=== PATIENT | male | born 1980 | race Two or more races ===

== ENCOUNTER 2020-10-05 15:57 | Outpatient (CLI) | payer MEDICARE, BC ==
[~2020-10-05 15:57] MED LIST: FURO40TA4 PO; LISI10TA27 PO; PER10325T PO; POTA10TA21 PO
[2020-10-07 12:47] LABS: HBSAG SCREEN Negative (Negative)
== END 2020-10-05 23:59 | disposition home or self-care (01) ==
LOC: RAD 15:57
PROVIDERS: ATTEND Nurse Practitioner Family
DX: N18.6 End stage renal disease (principal)
CPT/HCPCS: 36415; 86706; 87340

== ENCOUNTER 2022-06-27 07:55 | Day surgery (SDC) | payer BC, MEDICARE ==
[~2022-06-27] VITALS: Ht 175.3 cm; Wt 93.8 kg
[2022-06-27] MEDS ORDERED: normal saline 1000ml 1,000 ML IV PRN (08:15)
[2022-06-27 08:27] VITALS: BP 115/79
[2022-06-27] MEDS ORDERED: LIDOcaine 1% 30ml preserv. free vial SQ STA (08:28)
[2022-06-27] MEDS ORDERED: ATOR-2 PO (08:31)
[2022-06-27] MEDS ORDERED: HYDR-3972 PO (08:31)
[2022-06-27] MEDS ORDERED: SEVE800T28 PO (08:31)
[2022-06-27] MEDS ORDERED: albumin 25% 100mL bottle x 1 IV PRN (09:45)
[2022-06-27] MEDS ORDERED: pneumococcal 23-VAL P-sac vacc 25 mcg/0.5ml vial IMVAC ONE (09:50)
[2022-06-27 10:02] VITALS: BP 133/61
[2022-06-27 10:15] VITALS: BP 116/61
[2022-06-27 10:30] VITALS: BP 115/71
[2022-06-27 10:45] VITALS: BP 112/75
[2022-06-27 11:00] VITALS: BP 122/85
== END 2022-06-27 11:15 | disposition home or self-care (01) ==
LOC: SSTAY O 07:55
PROVIDERS: ATTEND Radiology Vascular & Interventional Radiology
DX: R18.8 Other ascites (principal); I12.0 Hypertensive chronic kidney disease with stage 5 chronic kidney disease or end stage renal disease; N18.6 End stage renal disease; G89.29 Other chronic pain; F11.20 Opioid dependence, uncomplicated; Z99.2 Dependence on renal dialysis; Z98.890 Other specified postprocedural states; Z79.899 Other long term (current) drug therapy; Z23 Encounter for immunization; Z82.49 Family history of ischemic heart disease and other diseases of the circulatory system; Z83.3 Family history of diabetes mellitus
CPT/HCPCS: 49083; 90471; 90732; P9047; A6258

== ENCOUNTER 2022-07-11 06:56 | Day surgery (SDC) | payer BC, MEDICARE ==
[~2022-07-11] VITALS: Ht 175.3 cm; Wt 95.1 kg
[~2022-07-11 06:56] MED LIST changes: +ATOR-2 PO; -FURO40TA4 PO; +HYDR-3972 PO; +LIDOcaine 1% 30ml preserv. free vial SQ ONE; -LISI10TA27 PO; -PER10325T PO; -POTA10TA21 PO; +SEVE800T28 PO
[2022-07-11] MEDS ORDERED: albumin 25% 100mL bottle x 1 IV PRN (07:15)
[2022-07-11 07:30] VITALS: BP 122/89
[2022-07-11 08:50] VITALS: BP 100/63
[2022-07-11 09:05] VITALS: BP 118/76
[2022-07-11 09:20] VITALS: BP 114/80
[2022-07-11 09:30] VITALS: BP 125/55
[2022-07-11 09:45] VITALS: BP 118/76
== END 2022-07-11 09:55 | disposition home or self-care (01) ==
LOC: SSTAY O 06:56
PROVIDERS: ATTEND Radiology Vascular & Interventional Radiology
DX: R18.8 Other ascites (principal); R14.0 Abdominal distension (gaseous); I12.0 Hypertensive chronic kidney disease with stage 5 chronic kidney disease or end stage renal disease; N18.6 End stage renal disease; F11.20 Opioid dependence, uncomplicated; G89.29 Other chronic pain; Z98.890 Other specified postprocedural states; Z79.899 Other long term (current) drug therapy; Z99.2 Dependence on renal dialysis
CPT/HCPCS: 49083; J3490; P9047; A6258; A6449

== ENCOUNTER 2022-07-25 07:06 | Day surgery (SDC) | payer BC, MEDICARE ==
[~2022-07-25] VITALS: Ht 172.7 cm; Wt 94.8 kg
[~2022-07-25 07:06] MED LIST changes: -LIDOcaine 1% 30ml preserv. free vial SQ ONE
[2022-07-25] MEDS ORDERED: LIDOcaine 1% 30ml preserv. free vial SQ STA (07:26)
[2022-07-25] MEDS ORDERED: albumin 25% 100mL bottle x 1 IV PRN (07:30)
[2022-07-25] MEDS ORDERED: normal saline 1000ml 1,000 ML IV PRN (07:30)
[2022-07-25 07:33] VITALS: BP 108/72
[2022-07-25 08:52] VITALS: BP 119/80
[2022-07-25 08:57] VITALS: BP 111/64
[2022-07-25 09:12] VITALS: BP 103/73
[2022-07-25 09:27] VITALS: BP 108/68
[2022-07-25 09:42] VITALS: BP 131/77
== END 2022-07-25 09:50 | disposition home or self-care (01) ==
LOC: SSTAY O 07:06
PROVIDERS: ATTEND Radiology Diagnostic Radiology
DX: R18.8 Other ascites (principal); R14.0 Abdominal distension (gaseous); I12.0 Hypertensive chronic kidney disease with stage 5 chronic kidney disease or end stage renal disease; N18.6 End stage renal disease; G89.29 Other chronic pain; Z99.2 Dependence on renal dialysis; Z79.899 Other long term (current) drug therapy
CPT/HCPCS: 49083; J3490; P9047; A6258; A6449

== ENCOUNTER 2022-08-08 07:03 | Day surgery (SDC) | payer BC, MEDICARE ==
[~2022-08-08] VITALS: Ht 175.3 cm; Wt 97.1 kg
[2022-08-08] MEDS ORDERED: LIDOcaine 1% 30ml preserv. free vial SQ STA (07:19)
[2022-08-08] MEDS ORDERED: albumin 25% 100mL bottle x 1 IV PRN (07:30)
[2022-08-08 08:14] VITALS: BP 103/74
[2022-08-08 08:19] VITALS: BP 123/68
[2022-08-08 08:34] VITALS: BP 110/72
[2022-08-08 09:05] VITALS: BP 104/75
[2022-08-08 09:19] VITALS: BP 92/58
[2022-08-08 09:30] VITALS: BP 118/87
== END 2022-08-08 09:45 | disposition home or self-care (01) ==
LOC: SSTAY O 07:03
PROVIDERS: ATTEND Radiology Vascular & Interventional Radiology
DX: R18.8 Other ascites (principal); R14.0 Abdominal distension (gaseous); I12.0 Hypertensive chronic kidney disease with stage 5 chronic kidney disease or end stage renal disease; N18.6 End stage renal disease; G89.29 Other chronic pain; Z98.890 Other specified postprocedural states; Z79.899 Other long term (current) drug therapy; Z82.49 Family history of ischemic heart disease and other diseases of the circulatory system; Z83.3 Family history of diabetes mellitus; Z80.0 Family history of malignant neoplasm of digestive organs
CPT/HCPCS: 49083; J3490; P9047; A6258

== ENCOUNTER 2022-08-22 08:25 | Day surgery (SDC) | payer BC, MEDICARE ==
[~2022-08-22] VITALS: Ht 175.3 cm; Wt 94.0 kg
[2022-08-22] MEDS ORDERED: LIDOcaine 1% 30ml preserv. free vial SQ STA (08:33)
[2022-08-22] MEDS ORDERED: albumin 25% 100mL bottle x 1 IV PRN (08:40)
[2022-08-22 08:45] VITALS: BP 104/72
[2022-08-22 09:43] VITALS: BP 112/77
[2022-08-22 09:58] VITALS: BP 106/73
[2022-08-22 10:13] VITALS: BP 91/60
[2022-08-22 10:28] VITALS: BP 106/69
[2022-08-22 10:43] VITALS: BP 100/84
== END 2022-08-22 10:48 | disposition home or self-care (01) ==
LOC: SSTAY O 08:25
PROVIDERS: ATTEND Radiology Vascular & Interventional Radiology
DX: R18.8 Other ascites (principal); R14.0 Abdominal distension (gaseous); I12.0 Hypertensive chronic kidney disease with stage 5 chronic kidney disease or end stage renal disease; N18.6 End stage renal disease; G89.29 Other chronic pain; N04.9 Nephrotic syndrome with unspecified morphologic changes; F11.20 Opioid dependence, uncomplicated; Z99.2 Dependence on renal dialysis; Z98.890 Other specified postprocedural states; Z79.899 Other long term (current) drug therapy
CPT/HCPCS: 49083; J3490; P9047; A6258; A6449

== ENCOUNTER 2022-09-05 06:59 | Day surgery (SDC) | payer BC, MEDICARE ==
[~2022-09-05] VITALS: Ht 172.7 cm; Wt 94.9 kg
[2022-09-05] MEDS ORDERED: LIDOcaine 1% 30ml preserv. free vial SQ STA (07:16)
[2022-09-05 07:20] VITALS: BP 107/74
[2022-09-05] MEDS ORDERED: albumin 25% 100mL bottle x 1 IV PRN (07:20)
[2022-09-05 08:45] VITALS: BP 95/66
[2022-09-05 09:00] VITALS: BP 103/70
[2022-09-05 09:15] VITALS: BP 90/56
[2022-09-05 09:30] VITALS: BP 101/64
[2022-09-05 09:45] VITALS: BP 103/67
== END 2022-09-05 10:00 | disposition home or self-care (01) ==
LOC: SSTAY O 06:59
PROVIDERS: ATTEND Radiology Vascular & Interventional Radiology
DX: R18.8 Other ascites (principal); R14.0 Abdominal distension (gaseous); I12.0 Hypertensive chronic kidney disease with stage 5 chronic kidney disease or end stage renal disease; N18.6 End stage renal disease; G89.29 Other chronic pain; F11.20 Opioid dependence, uncomplicated; Z98.890 Other specified postprocedural states; Z99.2 Dependence on renal dialysis; Z79.899 Other long term (current) drug therapy
CPT/HCPCS: 49083; J3490; P9047; A6258

== ENCOUNTER 2022-09-19 07:23 | Day surgery (SDC) | payer BC ==
[~2022-09-19] VITALS: Ht 175.3 cm; Wt 97.0 kg
[2022-09-19 07:38] VITALS: BP 97/71
[2022-09-19] MEDS ORDERED: LIDOcaine 1% 30ml preserv. free vial SQ STA (07:42)
[2022-09-19] MEDS ORDERED: albumin 25% 100mL bottle x 1 IV PRN (07:55)
[2022-09-19 08:58] VITALS: BP 145/55
[2022-09-19 09:03] VITALS: BP 105/63
[2022-09-19 09:15] VITALS: BP 105/68
[2022-09-19 09:30] VITALS: BP 108/67
[2022-09-19 09:45] VITALS: BP 111/67
== END 2022-09-19 10:00 | disposition home or self-care (01) ==
LOC: SSTAY O 07:23
PROVIDERS: ATTEND Radiology Vascular & Interventional Radiology
DX: R18.8 Other ascites (principal); I12.0 Hypertensive chronic kidney disease with stage 5 chronic kidney disease or end stage renal disease; N18.6 End stage renal disease; Z98.890 Other specified postprocedural states; Z79.899 Other long term (current) drug therapy
CPT/HCPCS: 49083; C1729; P9047; A6258; A6449

== ENCOUNTER 2022-09-29 06:52 | Day surgery (SDC) | payer BC ==
[2022-09-29] VITALS (7 sets, daily range): BP systolic 90–120; BP diastolic 45–70
[~2022-09-29] VITALS: Ht 175.3 cm; Wt 95.7 kg
[2022-09-29] MEDS ORDERED: albumin 25% 100mL bottle x 1 IV PRN (07:15)
[2022-09-29] MEDS ORDERED: LIDOcaine 1% 30ml preserv. free vial SQ STA (07:17)
[2022-09-29] MEDS ORDERED: normal saline 1000ml 1,000 ML IV PRN (07:20)
== END 2022-09-29 10:25 | disposition home or self-care (01) ==
LOC: SSTAY O 06:52
PROVIDERS: ATTEND Radiology Vascular & Interventional Radiology
DX: R18.8 Other ascites (principal); R14.0 Abdominal distension (gaseous); I12.0 Hypertensive chronic kidney disease with stage 5 chronic kidney disease or end stage renal disease; N18.6 End stage renal disease; G89.29 Other chronic pain; F11.20 Opioid dependence, uncomplicated; Z99.2 Dependence on renal dialysis; Z98.890 Other specified postprocedural states; Z79.899 Other long term (current) drug therapy
CPT/HCPCS: 49083; C1729; P9047; A6258; A6449

== ENCOUNTER 2022-10-10 06:48 | Day surgery (SDC) | payer BC ==
[~2022-10-10] VITALS: Ht 175.3 cm; Wt 96.0 kg
[2022-10-10] VITALS (8 sets, daily range): BP systolic 92–110; BP diastolic 55–76
[2022-10-10] MEDS ORDERED: albumin 25% 100mL bottle x 1 IV PRN (07:05)
[2022-10-10] MEDS ORDERED: LIDOcaine 1% (10mg/ml)w/preservative inj. 20ml MDV SQ STA (08:07)
== END 2022-10-10 10:00 | disposition home or self-care (01) ==
LOC: SSTAY O 06:48
PROVIDERS: ATTEND Radiology Vascular & Interventional Radiology
DX: R18.8 Other ascites (principal); R14.0 Abdominal distension (gaseous); I12.0 Hypertensive chronic kidney disease with stage 5 chronic kidney disease or end stage renal disease; N18.6 End stage renal disease; G89.29 Other chronic pain; F11.20 Opioid dependence, uncomplicated; Z98.890 Other specified postprocedural states; Z79.899 Other long term (current) drug therapy; Z83.3 Family history of diabetes mellitus; Z80.0 Family history of malignant neoplasm of digestive organs; Z82.49 Family history of ischemic heart disease and other diseases of the circulatory system
CPT/HCPCS: 49083; J3490; P9047; A6258; A6449; C1729

== ENCOUNTER 2022-10-17 05:57 | Day surgery (SDC) | payer BC ==
[~2022-10-17] VITALS: Ht 175.3 cm; Wt 95.7 kg
[2022-10-17 06:11] VITALS: BP 86/56
[2022-10-17] MEDS ORDERED: albumin 25% 100mL bottle x 1 IV PRN (06:25)
[2022-10-17] MEDS ORDERED: LIDOcaine 1%/PF 5ML 10 MG/ML VIAL SQ ONE (06:30)
[2022-10-17 08:10] VITALS: BP 95/64
[2022-10-17 08:30] VITALS: BP 101/73
[2022-10-17 08:45] VITALS: BP 94/61
[2022-10-17 09:00] VITALS: BP 95/69
[2022-10-17 09:10] VITALS: BP 101/57
== END 2022-10-17 09:30 | disposition home or self-care (01) ==
LOC: SSTAY O 05:57
PROVIDERS: ATTEND Radiology Vascular & Interventional Radiology
DX: R18.8 Other ascites (principal); R14.0 Abdominal distension (gaseous); I12.0 Hypertensive chronic kidney disease with stage 5 chronic kidney disease or end stage renal disease; N18.6 End stage renal disease; G89.29 Other chronic pain; Z99.2 Dependence on renal dialysis; Z98.890 Other specified postprocedural states; Z79.899 Other long term (current) drug therapy; F11.20 Opioid dependence, uncomplicated
CPT/HCPCS: 49083; J3490; P9047; A6258; A6449

== ENCOUNTER 2022-10-24 06:22 | Day surgery (SDC) | payer BC ==
[~2022-10-24] VITALS: Ht 175.3 cm; Wt 96.4 kg
[2022-10-24] MEDS ORDERED: albumin 25% 100mL bottle x 1 IV PRN (06:45)
[2022-10-24 07:00] VITALS: BP 99/63
[2022-10-24] MEDS ORDERED: LIDOcaine 1%/PF 5ML 10 MG/ML VIAL SQ ONE (07:00)
[2022-10-24 08:30] VITALS: BP 114/70
[2022-10-24 08:45] VITALS: BP 104/67
[2022-10-24 09:00] VITALS: BP 90/55
[2022-10-24 09:15] VITALS: BP 103/64
== END 2022-10-24 09:25 | disposition home or self-care (01) ==
LOC: SSTAY O 06:22
PROVIDERS: ATTEND Radiology Diagnostic Radiology
DX: R18.8 Other ascites (principal); R14.0 Abdominal distension (gaseous); I12.0 Hypertensive chronic kidney disease with stage 5 chronic kidney disease or end stage renal disease; N18.6 End stage renal disease; G89.29 Other chronic pain; F11.20 Opioid dependence, uncomplicated; Z99.2 Dependence on renal dialysis; Z98.890 Other specified postprocedural states; Z79.899 Other long term (current) drug therapy
CPT/HCPCS: 49083; J3490; P9047; A6258; A6449

== ENCOUNTER 2022-10-31 06:55 | Day surgery (SDC) | payer BC ==
[~2022-10-31] VITALS: Ht 172.7 cm; Wt 95.2 kg
[2022-10-31] MEDS ORDERED: albumin 25% 100mL bottle x 1 IV PRN (07:10)
[2022-10-31] MEDS ORDERED: LIDOcaine 1%/PF 5ML 10 MG/ML VIAL SQ ONE (07:10)
[2022-10-31 08:00] VITALS: BP 103/58
[2022-10-31 08:50] VITALS: BP 100/70
[2022-10-31 09:05] VITALS: BP 100/65
[2022-10-31 09:20] VITALS: BP 90/58
[2022-10-31 09:35] VITALS: BP 95/58
[2022-10-31 09:45] VITALS: BP 100/63
== END 2022-10-31 09:45 | disposition home or self-care (01) ==
LOC: SSTAY O 06:55
PROVIDERS: ATTEND Radiology Vascular & Interventional Radiology
DX: R18.8 Other ascites (principal); R14.0 Abdominal distension (gaseous); I12.0 Hypertensive chronic kidney disease with stage 5 chronic kidney disease or end stage renal disease; N18.6 End stage renal disease; G89.29 Other chronic pain; Z99.2 Dependence on renal dialysis; Z98.890 Other specified postprocedural states; F11.20 Opioid dependence, uncomplicated; Z79.899 Other long term (current) drug therapy; Z82.49 Family history of ischemic heart disease and other diseases of the circulatory system; Z80.0 Family history of malignant neoplasm of digestive organs; Z83.3 Family history of diabetes mellitus
CPT/HCPCS: 49083; J3490; P9047; A6258

== ENCOUNTER 2022-11-11 09:42 | Outpatient (CLI) | payer BC, MEDICARE | END 2022-11-11 23:59 | disposition home or self-care (01) | LOC: LAB 09:42 | PROVIDERS: ATTEND Nurse Practitioner Family | DX: R18.8 Other ascites (principal) | CPT/HCPCS: 36415; 82140; 85610 ==

== ENCOUNTER 2022-11-14 06:37 | Day surgery (SDC) | payer BC, MEDICARE ==
[~2022-11-14] VITALS: Ht 175.3 cm; Wt 97.9 kg
[2022-11-14] MEDS ORDERED: LIDOcaine 1%/PF 5ML 10 MG/ML VIAL SQ ONE (06:40)
[2022-11-14] MEDS ORDERED: normal saline 1000ml 1,000 ML IV PRN (06:55)
[2022-11-14] MEDS ORDERED: albumin 25% 100mL bottle x 1 IV PRN (06:55)
[2022-11-14 07:00] VITALS: BP 91/68
[2022-11-14 08:28] VITALS: BP 91/67
[2022-11-14 08:43] VITALS: BP 114/65
[2022-11-14 08:58] VITALS: BP 103/66
[2022-11-14 09:13] VITALS: BP 83/46
[2022-11-14 09:15] VITALS: BP 94/60
== END 2022-11-14 09:15 | disposition home or self-care (01) ==
LOC: SSTAY O 06:37
PROVIDERS: ATTEND Radiology Vascular & Interventional Radiology
DX: R18.8 Other ascites (principal); R14.0 Abdominal distension (gaseous); I12.0 Hypertensive chronic kidney disease with stage 5 chronic kidney disease or end stage renal disease; N18.6 End stage renal disease; G89.29 Other chronic pain; F11.20 Opioid dependence, uncomplicated; Z99.2 Dependence on renal dialysis; Z98.890 Other specified postprocedural states; Z79.899 Other long term (current) drug therapy; Z83.3 Family history of diabetes mellitus; Z82.49 Family history of ischemic heart disease and other diseases of the circulatory system; Z80.0 Family history of malignant neoplasm of digestive organs
CPT/HCPCS: 49083; J3490; P9047; A6258; A6449

== ENCOUNTER 2022-11-21 06:00 | Day surgery (SDC) | payer BC, MEDICARE ==
[~2022-11-21] VITALS: Ht 175.3 cm; Wt 97.4 kg
[2022-11-21] MEDS ORDERED: albumin 25% 100mL bottle x 1 IV PRN (06:15)
[2022-11-21] MEDS ORDERED: LIDOcaine 1%/PF 5ML 10 MG/ML VIAL SQ ONE (06:15)
[2022-11-21 08:04] VITALS: BP 103/69
[2022-11-21 08:12] VITALS: BP 103/69
[2022-11-21 08:34] VITALS: BP 116/70
[2022-11-21 08:52] VITALS: BP 108/77
== END 2022-11-21 09:10 | disposition home or self-care (01) ==
LOC: SSTAY O 06:00
PROVIDERS: ATTEND Radiology Diagnostic Radiology
DX: R18.8 Other ascites (principal); R14.0 Abdominal distension (gaseous); I12.0 Hypertensive chronic kidney disease with stage 5 chronic kidney disease or end stage renal disease; N18.6 End stage renal disease; Z99.2 Dependence on renal dialysis; G89.29 Other chronic pain; F11.20 Opioid dependence, uncomplicated; Z98.890 Other specified postprocedural states; Z79.899 Other long term (current) drug therapy
CPT/HCPCS: 49083; C1729; J3490; P9047; A6258

== ENCOUNTER 2022-12-26 06:44 | Day surgery (SDC) | payer BC ==
[2022-12-26] VITALS (8 sets, daily range): BP systolic 96–114; BP diastolic 56–78
[~2022-12-26] VITALS: Ht 175.3 cm; Wt 100.8 kg
[2022-12-26] MEDS ORDERED: LIDOcaine 1%/PF 5ML 10 MG/ML VIAL SQ ONE (07:35)
[2022-12-26] MEDS: albumin 25% 100mL bottle x 1 IV PRN ×2 (09:04→09:27)
[2022-12-26 10:49] LABS: GLUCOSE,BODY FLUID 107 MG/DL; LDH,BODY FLUID 116 U/L
[2022-12-26 11:29] LABS: BF RBC COUNT 3400 /CU MM; BF WBC COUNT 175 /CU MM (0-1000); BFAPPEAR CLOUDY; BFCOLOR YELLOW; BFVOLUME 58 ML; LYMPHOCYTES,BODY FLUID 30 %; MONOCYTES,BODY FLUID 62 %; NEUTROPHILS,BODY FLUID 8 %
[2022-12-26 11:30] LABS: BF MESOTHELIAL CELLS FEW
== END 2022-12-26 10:15 | disposition home or self-care (01) ==
LOC: SSTAY O 06:44
PROVIDERS: ATTEND Radiology Vascular & Interventional Radiology
DX: R18.8 Other ascites (principal); R14.0 Abdominal distension (gaseous); I12.0 Hypertensive chronic kidney disease with stage 5 chronic kidney disease or end stage renal disease; N18.6 End stage renal disease; G89.29 Other chronic pain; F11.20 Opioid dependence, uncomplicated; Z99.2 Dependence on renal dialysis; Z98.890 Other specified postprocedural states; Z79.899 Other long term (current) drug therapy; Z82.49 Family history of ischemic heart disease and other diseases of the circulatory system; Z80.0 Family history of malignant neoplasm of digestive organs; Z83.3 Family history of diabetes mellitus
CPT/HCPCS: 49083; 82945; 83615; 84157; 87070; 89051; C1729; J3490; P9047; A6258; A6449

== ENCOUNTER 2023-01-09 06:26 | Day surgery (SDC) | payer BC ==
[~2023-01-09] VITALS: Ht 175.3 cm; Wt 98.3 kg
[2023-01-09 06:37] VITALS: BP 100/81; PULSE 95; RESP 16; TEMP 98.4; O2SAT 98
[2023-01-09] MEDS ORDERED: albumin 25% 100mL bottle x 1 IV PRN (06:40)
[2023-01-09 08:49] VITALS: BP 91/50; PULSE 79; RESP 14; O2SAT 98
[2023-01-09] MEDS ORDERED: LIDOcaine 1% 30ml preserv. free vial SQ STA (09:00)
[2023-01-09 09:03] VITALS: BP 100/63; PULSE 83; RESP 14; O2SAT 98
[2023-01-09 09:18] VITALS: BP 107/77; PULSE 84; RESP 14; O2SAT 98
[2023-01-09 09:31] VITALS: BP 105/76; PULSE 82; RESP 14; O2SAT 98
[2023-01-09 09:45] VITALS: BP 100/74; PULSE 80; RESP 14; O2SAT 98
== END 2023-01-09 10:00 | disposition home or self-care (01) ==
LOC: SSTAY O 06:26
PROVIDERS: ATTEND Radiology Diagnostic Radiology
DX: R18.8 Other ascites (principal); R14.0 Abdominal distension (gaseous); I12.0 Hypertensive chronic kidney disease with stage 5 chronic kidney disease or end stage renal disease; N18.6 End stage renal disease; G89.29 Other chronic pain; F11.20 Opioid dependence, uncomplicated; Z98.890 Other specified postprocedural states; Z99.2 Dependence on renal dialysis; Z79.899 Other long term (current) drug therapy
CPT/HCPCS: 49083; C1729; J3490; P9047; A6258

== ENCOUNTER 2023-01-16 05:54 | Day surgery (SDC) | payer BC ==
[~2023-01-16] VITALS: Ht 175.3 cm; Wt 96.3 kg
[2023-01-16 06:18] VITALS: BP 104/61; PULSE 84; RESP 16; TEMP 97.4; O2SAT 98
[2023-01-16] MEDS ORDERED: albumin 25% 100mL bottle x 1 IV PRN (06:20)
[2023-01-16 06:30] VITALS: RESP 16; O2SAT 98
[2023-01-16 08:24] VITALS: BP 105/55; PULSE 79; RESP 16; O2SAT 95
[2023-01-16 08:39] VITALS: BP 108/66; PULSE 77; RESP 16; O2SAT 100
[2023-01-16 08:54] VITALS: BP 96/64; PULSE 78; RESP 16; O2SAT 100
[2023-01-16 09:10] VITALS: BP 120/77; PULSE 80; RESP 16; O2SAT 99
== END 2023-01-16 09:18 | disposition home or self-care (01) ==
LOC: SSTAY O 05:54
PROVIDERS: ATTEND Radiology Vascular & Interventional Radiology
DX: R18.8 Other ascites (principal); R14.0 Abdominal distension (gaseous); I12.0 Hypertensive chronic kidney disease with stage 5 chronic kidney disease or end stage renal disease; N18.6 End stage renal disease; G89.29 Other chronic pain; F11.20 Opioid dependence, uncomplicated; Z79.899 Other long term (current) drug therapy; Z98.890 Other specified postprocedural states; Z83.3 Family history of diabetes mellitus; Z82.49 Family history of ischemic heart disease and other diseases of the circulatory system; Z80.0 Family history of malignant neoplasm of digestive organs; Z84.1 Family history of disorders of kidney and ureter
CPT/HCPCS: 49083; C1729; J3490; P9047

== ENCOUNTER 2023-01-23 05:46 | Day surgery (SDC) | payer BC ==
[~2023-01-23] VITALS: Ht 175.3 cm; Wt 95.5 kg
[2023-01-23 06:10] VITALS: BP 110/81; PULSE 92; RESP 16; TEMP 97.8; O2SAT 100
[2023-01-23] MEDS ORDERED: albumin 25% 100mL bottle x 1 IV PRN (06:15)
[2023-01-23 08:20] VITALS: BP 96/63; PULSE 86; RESP 16; O2SAT 96
[2023-01-23 08:35] VITALS: BP 95/62; PULSE 85; RESP 15; O2SAT 97
[2023-01-23 08:50] VITALS: BP 103/70; PULSE 86; RESP 16; O2SAT 98
[2023-01-23 08:55] VITALS: BP 92/62; PULSE 87; RESP 15; O2SAT 99
[2023-01-23 09:10] VITALS: BP 90/60; PULSE 84; RESP 16; O2SAT 99
== END 2023-01-23 09:20 | disposition home or self-care (01) ==
LOC: SSTAY O 05:46
PROVIDERS: ATTEND Radiology Vascular & Interventional Radiology
DX: R18.8 Other ascites (principal); R14.0 Abdominal distension (gaseous); I12.0 Hypertensive chronic kidney disease with stage 5 chronic kidney disease or end stage renal disease; N18.6 End stage renal disease; G89.29 Other chronic pain; Z99.2 Dependence on renal dialysis; Z98.890 Other specified postprocedural states; F11.20 Opioid dependence, uncomplicated; Z79.899 Other long term (current) drug therapy
CPT/HCPCS: 49083; C1729; J3490; P9047; A6258; A6449; J7030

== ENCOUNTER 2023-02-06 06:05 | Day surgery (SDC) | payer BC ==
[2023-02-06] VITALS (7 sets, daily range): BP systolic 84–130; BP diastolic 53–80; PULSE 80–88; RESP 16; TEMP 97.8; O2SAT 98–100
[~2023-02-06] VITALS: Ht 172.7 cm; Wt 94.6 kg
[2023-02-06] MEDS ORDERED: LIDOcaine 1% 30ml preserv. free vial SQ PRN (06:25)
[2023-02-06] MEDS ORDERED: albumin 25% 100mL bottle x 1 IV PRN (06:25)
== END 2023-02-06 09:10 | disposition home or self-care (01) ==
LOC: SSTAY O 06:05
PROVIDERS: ATTEND Radiology Vascular & Interventional Radiology
DX: R18.8 Other ascites (principal); R14.0 Abdominal distension (gaseous); I12.0 Hypertensive chronic kidney disease with stage 5 chronic kidney disease or end stage renal disease; N18.6 End stage renal disease; G89.29 Other chronic pain; Z98.890 Other specified postprocedural states; Z99.2 Dependence on renal dialysis; Z79.899 Other long term (current) drug therapy
CPT/HCPCS: 49083; C1729; J3490; P9047; A6258; A6449

== ENCOUNTER 2023-02-13 05:54 | Day surgery (SDC) | payer BC ==
[~2023-02-13] VITALS: Ht 172.7 cm; Wt 90.1 kg
[2023-02-13] MEDS ORDERED: albumin 25% 100mL bottle x 1 IV PRN (06:35)
[2023-02-13 06:47] VITALS: BP 99/69; PULSE 87; RESP 16; TEMP 97.6; O2SAT 95
[2023-02-13 06:55] VITALS: RESP 16; O2SAT 95
[2023-02-13 08:02] VITALS: BP 118/48; PULSE 80; RESP 16; O2SAT 97
[2023-02-13 08:15] VITALS: BP 93/43; PULSE 79; RESP 16; O2SAT 95
[2023-02-13 08:32] VITALS: BP 98/71; PULSE 78; RESP 16; O2SAT 92
[2023-02-13 08:34] VITALS: BP 98/71; PULSE 78; RESP 16; O2SAT 92
== END 2023-02-13 08:56 | disposition home or self-care (01) ==
LOC: SSTAY O 05:54
PROVIDERS: ATTEND Radiology Diagnostic Radiology
DX: R18.8 Other ascites (principal); R14.0 Abdominal distension (gaseous); I12.0 Hypertensive chronic kidney disease with stage 5 chronic kidney disease or end stage renal disease; N18.6 End stage renal disease; G89.29 Other chronic pain; Z98.890 Other specified postprocedural states; Z79.899 Other long term (current) drug therapy; Z83.3 Family history of diabetes mellitus; Z82.49 Family history of ischemic heart disease and other diseases of the circulatory system; Z80.0 Family history of malignant neoplasm of digestive organs
CPT/HCPCS: 49083; C1729; J3490; P9047; A6258

== ENCOUNTER 2023-02-20 06:17 | Day surgery (SDC) | payer BC ==
[~2023-02-20] VITALS: Ht 172.7 cm; Wt 93.0 kg
[2023-02-20 06:30] VITALS: BP 102/61; PULSE 73; RESP 14; TEMP 97.5; O2SAT 95
[2023-02-20] MEDS ORDERED: albumin 25% 100mL bottle x 1 IV PRN (06:35)
[2023-02-20 07:00] VITALS: RESP 12; O2SAT 95
[2023-02-20 08:14] VITALS: BP 92/56; PULSE 72; RESP 12; O2SAT 97
[2023-02-20 08:29] VITALS: BP 104/64; PULSE 71; RESP 14; O2SAT 97
[2023-02-20 08:40] VITALS: BP 104/64; PULSE 71; RESP 12; O2SAT 97
[2023-02-20 08:55] VITALS: BP 114/65; PULSE 73; RESP 14; O2SAT 100
== END 2023-02-20 09:05 | disposition home or self-care (01) ==
LOC: SSTAY O 06:17
PROVIDERS: ATTEND Radiology Vascular & Interventional Radiology
DX: R18.8 Other ascites (principal); R14.0 Abdominal distension (gaseous); I12.0 Hypertensive chronic kidney disease with stage 5 chronic kidney disease or end stage renal disease; N18.6 End stage renal disease; Z99.2 Dependence on renal dialysis; G89.29 Other chronic pain; F11.20 Opioid dependence, uncomplicated; Z98.890 Other specified postprocedural states; Z79.899 Other long term (current) drug therapy
CPT/HCPCS: 49083; C1729; J3490; P9047; A6258; A6449

== ENCOUNTER 2023-03-02 06:44 | Day surgery (SDC) | payer BC ==
[2023-03-02] VITALS (9 sets, daily range): BP systolic 93–119; BP diastolic 55–70; PULSE 82–97; RESP 12–15; TEMP 98.7; O2SAT 98–100
[~2023-03-02] VITALS: Ht 175.3 cm; Wt 97.7 kg
[2023-03-02] MEDS ORDERED: MIDO10TA PO ×2 (07:19→07:21)
[2023-03-02] MEDS: albumin 25% 100mL bottle x 1 IV PRN ×2 (08:25→09:09)
== END 2023-03-02 09:55 | disposition home or self-care (01) ==
LOC: SSTAY O 06:44
PROVIDERS: ATTEND Radiology Diagnostic Radiology
DX: R18.8 Other ascites (principal); R14.0 Abdominal distension (gaseous); I12.0 Hypertensive chronic kidney disease with stage 5 chronic kidney disease or end stage renal disease; N18.6 End stage renal disease; G89.29 Other chronic pain; Z99.2 Dependence on renal dialysis; Z98.890 Other specified postprocedural states; Z79.899 Other long term (current) drug therapy
CPT/HCPCS: 49083; C1729; J3490; P9047

== ENCOUNTER 2023-03-20 05:57 | Day surgery (SDC) | payer BC ==
[~2023-03-20] VITALS: Ht 172.7 cm; Wt 104.2 kg
[2023-03-20] VITALS (9 sets, daily range): BP systolic 90–119; BP diastolic 48–72; PULSE 81–88; RESP 14–15; TEMP 97.9; O2SAT 96–100
[~2023-03-20 05:57] MED LIST changes: +MIDO10TA PO
[2023-03-20] MEDS: albumin 25% 100mL bottle x 1 IV PRN ×2 (08:38→08:39)
== END 2023-03-20 09:45 | disposition home or self-care (01) ==
LOC: SSTAY O 05:57
PROVIDERS: ATTEND Radiology Diagnostic Radiology
DX: R18.8 Other ascites (principal); R14.0 Abdominal distension (gaseous); I12.0 Hypertensive chronic kidney disease with stage 5 chronic kidney disease or end stage renal disease; N18.6 End stage renal disease; G89.29 Other chronic pain; F11.20 Opioid dependence, uncomplicated; Z99.2 Dependence on renal dialysis; Z98.890 Other specified postprocedural states; Z79.899 Other long term (current) drug therapy; Z83.3 Family history of diabetes mellitus; Z82.49 Family history of ischemic heart disease and other diseases of the circulatory system; Z80.0 Family history of malignant neoplasm of digestive organs
CPT/HCPCS: 49083; C1729; J3490; P9047; A6258; A6449

== ENCOUNTER 2023-03-27 06:34 | Day surgery (SDC) | payer BC ==
[2023-03-27] VITALS (9 sets, daily range): BP systolic 88–142; BP diastolic 55–72; PULSE 62–93; RESP 16; TEMP 98.3; O2SAT 96–100
[~2023-03-27] VITALS: Ht 172.7 cm; Wt 103.7 kg
[2023-03-27] MEDS ORDERED: albumin 25% 100mL bottle x 1 IV PRN (10:05)
== END 2023-03-27 10:40 | disposition home or self-care (01) ==
LOC: SSTAY O 06:34
PROVIDERS: ATTEND Radiology Vascular & Interventional Radiology
DX: R18.8 Other ascites (principal); R14.0 Abdominal distension (gaseous); I12.0 Hypertensive chronic kidney disease with stage 5 chronic kidney disease or end stage renal disease; N18.6 End stage renal disease; G89.29 Other chronic pain; Z99.2 Dependence on renal dialysis; Z98.890 Other specified postprocedural states; Z79.899 Other long term (current) drug therapy; Z83.3 Family history of diabetes mellitus; Z80.0 Family history of malignant neoplasm of digestive organs; Z82.49 Family history of ischemic heart disease and other diseases of the circulatory system
CPT/HCPCS: 49083; C1729; J3490; P9047; 96360; A6258; A6449

== ENCOUNTER 2023-04-10 06:10 | Day surgery (SDC) | payer BC ==
[~2023-04-10] VITALS: Ht 175.3 cm; Wt 99.2 kg
[2023-04-10] VITALS (7 sets, daily range): BP systolic 85–143; BP diastolic 47–66; PULSE 86–93; RESP 16; TEMP 97.6; O2SAT 95–98
[2023-04-10] MEDS: albumin 25% 100mL bottle x 1 IV PRN ×2 (08:30→09:10)
== END 2023-04-10 09:31 | disposition home or self-care (01) ==
LOC: SSTAY O 06:10
PROVIDERS: ATTEND Radiology Vascular & Interventional Radiology
DX: R18.8 Other ascites (principal); I12.0 Hypertensive chronic kidney disease with stage 5 chronic kidney disease or end stage renal disease; N18.6 End stage renal disease; Z98.890 Other specified postprocedural states
CPT/HCPCS: 49083; C1729; J3490; P9047; 96360; A6258

== ENCOUNTER 2023-04-17 05:56 | Day surgery (SDC) | payer BC ==
[2023-04-17] VITALS (8 sets, daily range): BP systolic 91–135; BP diastolic 42–116; PULSE 90–100; RESP 12–15; TEMP 98.2; O2SAT 95–98
[~2023-04-17] VITALS: Ht 175.3 cm; Wt 98.6 kg
[2023-04-17] MEDS: albumin 25% 100mL bottle x 1 IV PRN ×2 (08:14→09:54)
== END 2023-04-17 09:37 | disposition home or self-care (01) ==
LOC: SSTAY O 05:56
PROVIDERS: ATTEND Radiology Vascular & Interventional Radiology
DX: R18.8 Other ascites (principal); R14.0 Abdominal distension (gaseous); I12.0 Hypertensive chronic kidney disease with stage 5 chronic kidney disease or end stage renal disease; N18.6 End stage renal disease; F11.20 Opioid dependence, uncomplicated; Z99.2 Dependence on renal dialysis; G89.29 Other chronic pain; Z98.890 Other specified postprocedural states; Z79.899 Other long term (current) drug therapy; Z82.49 Family history of ischemic heart disease and other diseases of the circulatory system; Z80.0 Family history of malignant neoplasm of digestive organs; Z83.3 Family history of diabetes mellitus
CPT/HCPCS: 49083; C1729; P9047; A6449

== ENCOUNTER 2023-04-24 06:03 | Day surgery (SDC) | payer BC ==
[~2023-04-24] VITALS: Ht 172.7 cm; Wt 100.6 kg
[2023-04-24] VITALS (9 sets, daily range): BP systolic 82–117; BP diastolic 58–74; PULSE 85–97; RESP 16; TEMP 97.9; O2SAT 95–100
[2023-04-24] MEDS ORDERED: albumin 25% 100mL bottle x 1 IV PRN (06:30)
== END 2023-04-24 09:30 | disposition home or self-care (01) ==
LOC: SSTAY O 06:03
PROVIDERS: ATTEND Radiology Vascular & Interventional Radiology
DX: R18.8 Other ascites (principal); R14.0 Abdominal distension (gaseous); I12.0 Hypertensive chronic kidney disease with stage 5 chronic kidney disease or end stage renal disease; N18.6 End stage renal disease; F11.20 Opioid dependence, uncomplicated; Z99.2 Dependence on renal dialysis; Z98.890 Other specified postprocedural states; Z79.899 Other long term (current) drug therapy
CPT/HCPCS: 49083; C1729; P9047; A6258

== ENCOUNTER 2023-05-01 05:55 | Day surgery (SDC) | payer BC, MEDICARE ==
[~2023-05-01] VITALS: Ht 175.3 cm; Wt 96.1 kg
[2023-05-01] VITALS (7 sets, daily range): BP systolic 81–90; BP diastolic 47–65; PULSE 86–100; RESP 16–18; TEMP 98; O2SAT 94–99
[2023-05-01] MEDS ORDERED: albumin 25% 100mL bottle x 1 IV PRN (06:40)
== END 2023-05-01 09:00 | disposition home or self-care (01) ==
LOC: SSTAY O 05:55
PROVIDERS: ATTEND Radiology Vascular & Interventional Radiology
DX: R18.8 Other ascites (principal); R14.0 Abdominal distension (gaseous); I12.0 Hypertensive chronic kidney disease with stage 5 chronic kidney disease or end stage renal disease; N18.6 End stage renal disease; G89.29 Other chronic pain; Z99.2 Dependence on renal dialysis; Z98.890 Other specified postprocedural states
CPT/HCPCS: 49083; C1729; P9047; A6258; J7030

== ENCOUNTER 2023-05-06 06:30 | Day surgery (SDC) | payer BC ==
[2023-05-06] VITALS (8 sets, daily range): BP systolic 76–117; BP diastolic 41–98; PULSE 91–102; RESP 16–18; TEMP 98.3; O2SAT 94–99
[~2023-05-06] VITALS: Ht 172.7 cm; Wt 97.3 kg
[2023-05-06] MEDS ORDERED: albumin 25% 100mL bottle x 1 IV PRN (07:10)
== END 2023-05-06 10:33 | disposition home or self-care (01) ==
LOC: SSTAY O 06:30
PROVIDERS: ATTEND Radiology Vascular & Interventional Radiology
DX: R18.8 Other ascites (principal); R14.0 Abdominal distension (gaseous); I12.0 Hypertensive chronic kidney disease with stage 5 chronic kidney disease or end stage renal disease; N18.6 End stage renal disease; G89.29 Other chronic pain; Z99.2 Dependence on renal dialysis; Z98.890 Other specified postprocedural states; Z79.899 Other long term (current) drug therapy
CPT/HCPCS: 49083; C1729; P9047; A6258; A6449

== ENCOUNTER 2023-05-15 06:03 | Day surgery (SDC) | payer BC ==
[~2023-05-15] VITALS: Ht 175.3 cm; Wt 95.0 kg
[2023-05-15] MEDS ORDERED: albumin 25% 100mL bottle x 1 IV PRN (06:20)
[2023-05-15] MEDS ORDERED: LEVO50TA8 PO (06:25)
[2023-05-15 06:47] VITALS: BP 98/56; PULSE 103; RESP 16; TEMP 97.5; O2SAT 98
[2023-05-15 08:17] VITALS: BP 95/56; PULSE 105; RESP 16; O2SAT 98
[2023-05-15 08:32] VITALS: BP 92/55; PULSE 106; RESP 16; O2SAT 98
[2023-05-15 08:47] VITALS: BP 88/55; PULSE 105; RESP 16; O2SAT 98
[2023-05-15 09:02] VITALS: BP 122/72; PULSE 104; RESP 16; O2SAT 97
== END 2023-05-15 09:10 | disposition home or self-care (01) ==
LOC: SSTAY O 06:03
PROVIDERS: ATTEND Radiology Vascular & Interventional Radiology
DX: R18.8 Other ascites (principal); R14.0 Abdominal distension (gaseous); I12.0 Hypertensive chronic kidney disease with stage 5 chronic kidney disease or end stage renal disease; N18.6 End stage renal disease; G89.29 Other chronic pain; F11.20 Opioid dependence, uncomplicated; Z99.2 Dependence on renal dialysis; Z98.890 Other specified postprocedural states
CPT/HCPCS: 49083; C1729; P9047; A6258

== ENCOUNTER 2023-05-22 05:55 | Day surgery (SDC) | payer BC, MEDICARE ==
[~2023-05-22 05:55] MED LIST changes: +LEVO50TA8 PO
[2023-05-22 06:04] VITALS: BP 107/69; PULSE 100; RESP 14; TEMP 97.9; O2SAT 96
[2023-05-22] MEDS ORDERED: albumin 25% 100mL bottle x 1 IV PRN (06:10)
[2023-05-22 08:35] VITALS: BP 86/54; PULSE 98; RESP 14; O2SAT 96
[2023-05-22 08:45] VITALS: BP 87/61; PULSE 95; RESP 16; O2SAT 97
[2023-05-22 09:00] VITALS: BP 85/51; PULSE 95; RESP 16; O2SAT 97
[2023-05-22 09:15] VITALS: BP 102/47; PULSE 97; RESP 16; O2SAT 97
[2023-05-22 09:30] VITALS: BP 105/52; PULSE 97; RESP 14; O2SAT 96
== END 2023-05-22 09:45 | disposition home or self-care (01) ==
LOC: SSTAY O 05:55
PROVIDERS: ATTEND Radiology Vascular & Interventional Radiology
DX: R18.8 Other ascites (principal); R14.0 Abdominal distension (gaseous); I12.0 Hypertensive chronic kidney disease with stage 5 chronic kidney disease or end stage renal disease; N18.6 End stage renal disease; Z99.2 Dependence on renal dialysis; F11.20 Opioid dependence, uncomplicated; Z98.890 Other specified postprocedural states; Z79.899 Other long term (current) drug therapy; Z82.49 Family history of ischemic heart disease and other diseases of the circulatory system; Z80.0 Family history of malignant neoplasm of digestive organs
CPT/HCPCS: 49083; C1729; P9047; A6258

== ENCOUNTER 2023-05-29 06:39 | Day surgery (SDC) | payer BC, MEDICARE ==
[~2023-05-29] VITALS: Ht 172.7 cm; Wt 97.0 kg
[2023-05-29] MEDS ORDERED: albumin 25% 100mL bottle x 1 IV PRN (07:00)
[2023-05-29] MEDS ORDERED: normal saline 1000ml 1,000 ML IV PRN (07:00)
[2023-05-29 07:06] VITALS: BP 90/64; PULSE 104; RESP 16; TEMP 98.1; O2SAT 98
[2023-05-29 08:03] VITALS: RESP 16
[2023-05-29 09:13] VITALS: BP 132/95; PULSE 68; RESP 16; O2SAT 87
[2023-05-29 09:28] VITALS: BP 84/54; PULSE 99; RESP 16; O2SAT 92
[2023-05-29 09:35] VITALS: BP 86/59; PULSE 75; RESP 16; O2SAT 92
== END 2023-05-29 09:45 | disposition home or self-care (01) ==
LOC: SSTAY O 06:39
PROVIDERS: ATTEND Radiology Diagnostic Radiology
DX: R18.8 Other ascites (principal); G89.29 Other chronic pain; I12.0 Hypertensive chronic kidney disease with stage 5 chronic kidney disease or end stage renal disease; N18.6 End stage renal disease; F11.20 Opioid dependence, uncomplicated; Z98.890 Other specified postprocedural states; Z79.899 Other long term (current) drug therapy
CPT/HCPCS: 49083; C1729; 96360; A6258; A6449

== ENCOUNTER 2023-06-12 05:52 | Day surgery (SDC) | payer BC, MEDICARE ==
[2023-06-12] VITALS (7 sets, daily range): BP systolic 81–106; BP diastolic 55–71; PULSE 87–92; RESP 16; TEMP 98.2; O2SAT 96–100
[~2023-06-12] VITALS: Ht 172.7 cm; Wt 92.7 kg
[~2023-06-12 05:52] MED LIST changes: -HYDR-3972 PO; +HYDR-3973 PO
[2023-06-12] MEDS ORDERED: TRAM100T34 PO (06:16)
[2023-06-12] MEDS ORDERED: albumin 25% 100mL bottle x 1 IV PRN (06:35)
== END 2023-06-12 09:47 | disposition home or self-care (01) ==
LOC: SSTAY O 05:52
PROVIDERS: ATTEND Radiology Vascular & Interventional Radiology
DX: R18.8 Other ascites (principal); R14.0 Abdominal distension (gaseous); I12.0 Hypertensive chronic kidney disease with stage 5 chronic kidney disease or end stage renal disease; N18.6 End stage renal disease; G89.29 Other chronic pain; Z99.2 Dependence on renal dialysis; F11.20 Opioid dependence, uncomplicated; Z98.890 Other specified postprocedural states; Z79.899 Other long term (current) drug therapy
CPT/HCPCS: 49083; C1729; P9047; A6258; A6449

== ENCOUNTER 2023-06-19 05:59 | Day surgery (SDC) | payer BC, MEDICARE ==
[~2023-06-19] VITALS: Ht 175.3 cm; Wt 90.7 kg
[2023-06-19] VITALS (7 sets, daily range): BP systolic 85–100; BP diastolic 50–70; PULSE 89–98; RESP 16; TEMP 98.2; O2SAT 94–100
[~2023-06-19 05:59] MED LIST changes: -HYDR-3973 PO; +TRAM100T34 PO
[2023-06-19] MEDS ORDERED: albumin 25% 100mL bottle x 1 IV PRN (06:40)
== END 2023-06-19 09:30 | disposition home or self-care (01) ==
LOC: SSTAY O 05:59
PROVIDERS: ATTEND Radiology Vascular & Interventional Radiology
DX: R18.8 Other ascites (principal); R14.0 Abdominal distension (gaseous); I12.0 Hypertensive chronic kidney disease with stage 5 chronic kidney disease or end stage renal disease; N18.6 End stage renal disease; F11.20 Opioid dependence, uncomplicated; Z99.2 Dependence on renal dialysis; Z98.890 Other specified postprocedural states; Z79.899 Other long term (current) drug therapy; Z83.3 Family history of diabetes mellitus; Z80.0 Family history of malignant neoplasm of digestive organs; Z82.49 Family history of ischemic heart disease and other diseases of the circulatory system
CPT/HCPCS: 49083; C1729; P9047; A6258

== ENCOUNTER 2023-06-25 06:11 | Day surgery (SDC) | payer BC, MEDICARE ==
[~2023-06-25] VITALS: Ht 175.3 cm; Wt 92.2 kg
[2023-06-25 06:20] VITALS: BP 102/60; PULSE 99; RESP 17; TEMP 97.7; O2SAT 93
[2023-06-25] MEDS ORDERED: LANT10005 PO (06:21)
[2023-06-25] MEDS ORDERED: albumin 25% 100mL bottle x 1 IV PRN (06:25)
[2023-06-25 06:38] VITALS: RESP 15; O2SAT 96
[2023-06-25 08:11] VITALS: BP 119/58; PULSE 100; RESP 17; O2SAT 97
[2023-06-25 08:26] VITALS: BP 98/66; PULSE 100; RESP 16; O2SAT 98
[2023-06-25 08:41] VITALS: BP 101/63; PULSE 96; RESP 15; O2SAT 98
[2023-06-25 08:45] VITALS: BP 99/59; PULSE 98; RESP 15; O2SAT 95
== END 2023-06-25 09:45 | disposition home or self-care (01) ==
LOC: SSTAY O 06:11
PROVIDERS: ATTEND Radiology Vascular & Interventional Radiology
DX: R18.8 Other ascites (principal); R14.0 Abdominal distension (gaseous); I12.0 Hypertensive chronic kidney disease with stage 5 chronic kidney disease or end stage renal disease; N18.6 End stage renal disease; G89.29 Other chronic pain; Z98.890 Other specified postprocedural states; Z99.2 Dependence on renal dialysis; Z79.899 Other long term (current) drug therapy
CPT/HCPCS: 49083; A6258; A6449; C1729

== ENCOUNTER 2023-07-03 05:53 | Day surgery (SDC) | payer BC, MEDICARE ==
[~2023-07-03] VITALS: Ht 172.7 cm; Wt 90.1 kg
[~2023-07-03 05:53] MED LIST changes: +LANT10005 PO
[2023-07-03] MEDS ORDERED: albumin 25% 100mL bottle x 1 IV PRN (06:10)
[2023-07-03 06:22] VITALS: BP 99/62; PULSE 96; RESP 15; TEMP 98.1; O2SAT 97
[2023-07-03 06:48] VITALS: RESP 15; O2SAT 98
[2023-07-03 08:05] VITALS: BP 111/63; PULSE 88; RESP 15; O2SAT 96
[2023-07-03 08:20] VITALS: BP 93/64; PULSE 92; RESP 14; O2SAT 93
[2023-07-03 08:31] VITALS: BP 101/69; PULSE 92; RESP 15; O2SAT 96
[2023-07-03 08:35] VITALS: BP 103/65; PULSE 93; RESP 14; O2SAT 96
== END 2023-07-03 09:29 | disposition home or self-care (01) ==
LOC: SSTAY O 05:53
PROVIDERS: ATTEND Radiology Vascular & Interventional Radiology
DX: R18.8 Other ascites (principal); I12.0 Hypertensive chronic kidney disease with stage 5 chronic kidney disease or end stage renal disease; N18.6 End stage renal disease; Z98.890 Other specified postprocedural states; Z99.2 Dependence on renal dialysis; Z84.1 Family history of disorders of kidney and ureter
CPT/HCPCS: 49083; C1729; J3490; A6258; A6449

== ENCOUNTER 2023-07-10 06:08 | Day surgery (SDC) | payer BC, MEDICARE ==
[~2023-07-10] VITALS: Ht 175.3 cm; Wt 90.0 kg
[2023-07-10 06:20] VITALS: BP 122/65; PULSE 101; RESP 16; TEMP 98.4; O2SAT 100
[2023-07-10] MEDS ORDERED: albumin 25% 100mL bottle x 1 IV PRN (06:25)
[2023-07-10 08:25] VITALS: BP 108/65; PULSE 100; RESP 16; O2SAT 95
[2023-07-10 08:40] VITALS: BP 103/69; PULSE 98; RESP 15; O2SAT 96
[2023-07-10 08:45] VITALS: BP 110/74; PULSE 101; RESP 16; O2SAT 95
[2023-07-10 09:00] VITALS: BP 113/70; PULSE 97; RESP 16; O2SAT 97
== END 2023-07-10 09:05 | disposition home or self-care (01) ==
LOC: SSTAY O 06:08
PROVIDERS: ATTEND Radiology Vascular & Interventional Radiology
DX: R18.8 Other ascites (principal); R14.0 Abdominal distension (gaseous); I12.0 Hypertensive chronic kidney disease with stage 5 chronic kidney disease or end stage renal disease; N18.6 End stage renal disease; G89.29 Other chronic pain; Z98.890 Other specified postprocedural states; F11.20 Opioid dependence, uncomplicated; Z79.899 Other long term (current) drug therapy; Z99.2 Dependence on renal dialysis
CPT/HCPCS: 49083; C1729; A6258; A6449

== ENCOUNTER 2023-07-17 06:01 | Day surgery (SDC) | payer BC, MEDICARE ==
[2023-07-17] VITALS (7 sets, daily range): BP systolic 92–120; BP diastolic 52–77; PULSE 95–103; RESP 16; TEMP 98.2; O2SAT 95–100
[~2023-07-17] VITALS: Ht 175.3 cm; Wt 90.1 kg
[2023-07-17] MEDS ORDERED: albumin 25% 100mL bottle x 1 IV PRN (06:25)
== END 2023-07-17 09:30 | disposition home or self-care (01) ==
LOC: SSTAY O 06:01
PROVIDERS: ATTEND Radiology Vascular & Interventional Radiology
DX: R18.8 Other ascites (principal); R14.0 Abdominal distension (gaseous); I12.0 Hypertensive chronic kidney disease with stage 5 chronic kidney disease or end stage renal disease; N18.6 End stage renal disease; G89.29 Other chronic pain; F11.20 Opioid dependence, uncomplicated; Z99.2 Dependence on renal dialysis; Z98.890 Other specified postprocedural states; Z79.899 Other long term (current) drug therapy; Z84.1 Family history of disorders of kidney and ureter; Z83.3 Family history of diabetes mellitus; Z82.49 Family history of ischemic heart disease and other diseases of the circulatory system
CPT/HCPCS: 49083; C1729

== ENCOUNTER → 2023-07-24 | Day surgery (SDC) | payer BC, MEDICARE ==
[2023-07-24] VITALS (7 sets, daily range): BP systolic 108–126; BP diastolic 65–78; PULSE 98–105; RESP 16; TEMP 98.2; O2SAT 94–97
[~2023-07-24] VITALS: Ht 175.3 cm; Wt 91.5 kg
[~2023-07-24] MED LIST changes: +HYDR-3972 PO; +albumin 25% 100mL bottle x 1 IV PRN
== END | disposition home or self-care (01) ==
LOC: SSTAY O 06:11
PROVIDERS: ATTEND Radiology Diagnostic Radiology
DX: R18.8 Other ascites (principal); R14.0 Abdominal distension (gaseous); I12.0 Hypertensive chronic kidney disease with stage 5 chronic kidney disease or end stage renal disease; N18.6 End stage renal disease; G89.29 Other chronic pain; Z99.2 Dependence on renal dialysis; Z98.890 Other specified postprocedural states; F11.20 Opioid dependence, uncomplicated; Z79.899 Other long term (current) drug therapy; Z84.1 Family history of disorders of kidney and ureter
CPT/HCPCS: 49083; C1729; A6258; A6449

== ENCOUNTER 2023-07-31 06:20 | Day surgery (SDC) | payer BC, MEDICARE ==
[~2023-07-31] VITALS: Ht 175.3 cm; Wt 89.7 kg
[~2023-07-31 06:20] MED LIST changes: -HYDR-3972 PO; -albumin 25% 100mL bottle x 1 IV PRN
[2023-07-31 06:33] VITALS: BP 93/69; PULSE 100; RESP 16; TEMP 98.1; O2SAT 100
[2023-07-31] MEDS ORDERED: albumin 25% 100mL bottle x 1 IV PRN (06:40)
[2023-07-31] MEDS ORDERED: HYDR-3972 PO (06:41)
[2023-07-31 06:45] VITALS: BP 93/69; PULSE 100; RESP 16; TEMP 97.7; O2SAT 100
[2023-07-31 08:07] VITALS: BP 102/56; PULSE 100; RESP 16; O2SAT 97
[2023-07-31 08:15] VITALS: BP 97/57; PULSE 96; RESP 15; O2SAT 97
[2023-07-31 08:30] VITALS: BP 95/64; PULSE 99; RESP 15; O2SAT 96; O2SAT 97
[2023-07-31 09:00] VITALS: BP 101/63; PULSE 98; RESP 14; O2SAT 98
== END 2023-07-31 09:15 | disposition home or self-care (01) ==
LOC: SSTAY O 06:20
PROVIDERS: ATTEND Radiology Vascular & Interventional Radiology
DX: R18.8 Other ascites (principal); R14.0 Abdominal distension (gaseous); I12.0 Hypertensive chronic kidney disease with stage 5 chronic kidney disease or end stage renal disease; N18.6 End stage renal disease; G89.29 Other chronic pain; Z98.890 Other specified postprocedural states; Z79.899 Other long term (current) drug therapy; Z99.2 Dependence on renal dialysis; Z84.1 Family history of disorders of kidney and ureter
CPT/HCPCS: 49083; C1729

== ENCOUNTER 2023-08-07 06:12 | Day surgery (SDC) | payer BC, MEDICARE ==
[~2023-08-07] VITALS: Ht 175.3 cm; Wt 91.6 kg
[~2023-08-07 06:12] MED LIST changes: +HYDR-3972 PO
[2023-08-07] MEDS ORDERED: albumin 25% 100mL bottle x 1 IV PRN (06:35)
[2023-08-07 06:49] VITALS: BP 99/67; PULSE 104; RESP 16; TEMP 98.2; O2SAT 99
[2023-08-07 06:54] VITALS: RESP 16; O2SAT 99
[2023-08-07 09:02] VITALS: BP 92/57; PULSE 98; RESP 16; O2SAT 97
[2023-08-07 09:17] VITALS: BP 93/61; PULSE 98; RESP 16; O2SAT 98
[2023-08-07 09:22] VITALS: BP 104/67; PULSE 102; RESP 16; O2SAT 96
== END 2023-08-07 09:30 | disposition home or self-care (01) ==
LOC: SSTAY O 06:12
PROVIDERS: ATTEND Radiology Vascular & Interventional Radiology
DX: R18.8 Other ascites (principal); I12.0 Hypertensive chronic kidney disease with stage 5 chronic kidney disease or end stage renal disease; N18.6 End stage renal disease; Z98.890 Other specified postprocedural states; Z99.2 Dependence on renal dialysis; G89.29 Other chronic pain; F11.20 Opioid dependence, uncomplicated; Z79.899 Other long term (current) drug therapy; Z83.3 Family history of diabetes mellitus; Z82.49 Family history of ischemic heart disease and other diseases of the circulatory system
CPT/HCPCS: 49083; C1729; A4615; A6449

== ENCOUNTER 2023-08-13 06:23 | Day surgery (SDC) | payer BC, MEDICARE ==
[~2023-08-13] VITALS: Ht 175.3 cm; Wt 94.4 kg
[~2023-08-13 06:23] MED LIST changes: -TRAM100T34 PO
[2023-08-13] MEDS ORDERED: albumin 25% 100mL bottle x 1 IV PRN (06:40)
[2023-08-13 06:50] VITALS: BP 94/45; PULSE 99; RESP 16; TEMP 97.8; O2SAT 99
== END 2023-08-13 08:30 | disposition home or self-care (01) ==
LOC: SSTAY O 06:23
PROVIDERS: ATTEND Radiology Vascular & Interventional Radiology
DX: R18.8 Other ascites (principal); Z53.8 Procedure and treatment not carried out for other reasons; R14.0 Abdominal distension (gaseous); I12.0 Hypertensive chronic kidney disease with stage 5 chronic kidney disease or end stage renal disease; N18.6 End stage renal disease; Z98.890 Other specified postprocedural states; Z99.2 Dependence on renal dialysis; G89.29 Other chronic pain; F11.20 Opioid dependence, uncomplicated; Z79.899 Other long term (current) drug therapy; Z83.3 Family history of diabetes mellitus; Z82.49 Family history of ischemic heart disease and other diseases of the circulatory system
CPT/HCPCS: 49083; 76705; A4615; A6258